=== PATIENT | male | born 1980 | race Two or more races ===

== ENCOUNTER → 2016-06-03 | Outpatient (REF) | payer OTHER | LOC: M SMT 10:56 | PROVIDERS: ATTEND Urology | DX: Z30.2 Encounter for sterilization (principal) ==

== ENCOUNTER → 2016-07-17 | Outpatient (REF) | payer OTHER ==
[2016-07-17 09:47] LABS: IMMMOTILE SPERM CENTRIFUGED ABSENT (ABSENT); IMMOTILE SPERM ABSENT (ABSENT); MOTILE SPERM ABSENT (ABSENT); MOTILE SPERM CENTRIFUGED ABSENT (ABSENT)
== END ==
LOC: M SMT 09:28
PROVIDERS: ATTEND Urology
DX: Z30.2 Encounter for sterilization (principal)